=== PATIENT | female | born 1950 | race Caucasian/White ===

== ENCOUNTER → 2018-11-18 | Outpatient (CLI) | payer MEDICARE, OTHER | END | disposition home or self-care (01) | LOC: CFH 12:41 | PROVIDERS: ATTEND Internal Medicine | DX: Z13.820 Encounter for screening for osteoporosis (principal); N95.9 Unspecified menopausal and perimenopausal disorder | CPT/HCPCS: 77080 ==

== ENCOUNTER → 2019-04-20 | Outpatient (CLI) | payer MEDICARE, OTHER ==
[~2019-04-20] MED LIST: BUTA-177 PO; CYAN1TAB20 PO; EZET10TA18 PO; FEXO180T15 PO; HYDROCHLOROTH12.5 MG PO; LOSA25TA25 PO; OMEP-110 PO; ROSU40TA PO
[2019-04-20 13:52] LABS: BASOPHILS # (AUTO) 0.03 x10^3/uL (0-0.1); BASOPHILS % (AUTO) 1 % (0-1); EOSINOPHILS # (AUTO) 0.07 x10^3/uL (0-0.4); EOSINOPHILS % (AUTO) 2 % (1-7); LYMPHOCYTES # (AUTO) 0.93 x10^3/uL (1-3.4); LYMPHOCYTES % (AUTO) 21 % (22-44); MD NO; MEAN CORPUSCULAR HEMOGLOBIN 30.8 pg (27.0-34.8); MEAN CORPUSCULAR HGB CONC 33.2 g/dL (32.4-35.8); MEAN CORPUSCULAR VOLUME 92.9 fL (80-100); MEAN PLATELET VOLUME 8.3 fL (7.4-10.4); MONOCYTES # (AUTO) 0.34 x10^3/uL (0.2-0.8); MONOCYTES % (AUTO) 8 % (2-9); NEUTROPHILS # (AUTO) 2.97 x10^3/uL (1.8-6.8); NEUTROPHILS % (AUTO) 69 % (42-75); PLATELET COUNT 214 x10^3/uL (130-400); RED BLOOD COUNT 4.36 x10^6/uL (3.82-5.3); RED CELL DISTRIBUTION WIDTH 13.3 % (9.6-15.2)
[2019-04-20 13:54] LABS: INTERNATIONAL NORMALIZED RATIO 0.95 (0.93-1.1)
[2019-04-20 13:55] LABS: ANION GAP 5 mmol/L (5-15); CALCIUM 9.4 mg/dL (8.5-10.1); CHLORIDE 106 mmol/L (98-107); CREATININE 1.03 mg/dL (0.55-1.02)
[2019-04-20 13:56] LABS: ALANINE AMINOTRANSFERASE 36 U/L (12-78); ALBUMIN 4.2 g/dL (3.4-5.0)
[2019-04-20 13:57] LABS: ALKALINE PHOSPHATASE 116 U/L (45-117); BILIRUBIN,TOTAL 0.4 mg/dL (0.2-1.0); TOTAL PROTEIN 7.1 g/dL (6.4-8.2)
[2019-04-20 14:08] LABS: HEMOGLOBIN A1C 5.8 % (4.2-6.3)
== END | disposition home or self-care (01) ==
LOC: STAR 12:23
PROVIDERS: ATTEND Orthopaedic Surgery
DX: Z01.818 Encounter for other preprocedural examination (principal); Z96.651 Presence of right artificial knee joint
CPT/HCPCS: 36415; 80053; 83036; 85025; 85610; 85730; 87081; 93005

== ENCOUNTER 2019-05-07 06:22 | Observation (INO) | payer MEDICARE, OTHER ==
[2019-04-20 13:03] VITALS: BP 122/83
[~2019-05-07] VITALS: Ht 157.5 cm; Wt 71.8 kg
[2019-05-07] MEDS: NS + 20MEQ KCL 1,000 ML IV SCH ×2 (06:22→13:35)
[2019-05-07] MEDS ORDERED: BISACODYL 10 MG SUPP PR PRN (06:30)
[2019-05-07] MEDS ORDERED: HYDROcodone/APAP 5/325 TABLET PO PRN (06:30)
[2019-05-07] MEDS ORDERED: ACETAMINOPHEN 650 MG/20.3 ML UDC PO PRN (06:30)
[2019-05-07] MEDS ORDERED: SCOPOLAMINE PATCH, 1.5MG PATCH.TD72 TD ONE (06:30)
[2019-05-07] MEDS ORDERED: DIPHENHYDRAMINE 50 MG CAPSULE PO PRN (06:30)
[2019-05-07] MEDS ORDERED: MAGNESIUM HYDROXIDE 8%, 30ML UDC PO PRN (06:30)
[2019-05-07] MEDS ORDERED: ZOLPIDEM 5MG TABLET PO PRN (06:30)
[2019-05-07] MEDS ORDERED: SENNA/DOCUSATE TABLET PO PRN (06:30)
[2019-05-07] MEDS ORDERED: ONDANSETRON 4 MG TABLET PO PRN (06:30)
[2019-05-07] MEDS ORDERED: HYDROmorphone 1 MG/ML, 1ML INJ IV PRN (06:30)
[2019-05-07] MEDS ORDERED: LACTATED RINGERS 1,000 ML IV SCH (06:54)
[2019-05-07] MEDS ORDERED: ACETAMINOPHEN 500 MG TABLET PO ONE (07:00)
[2019-05-07] MEDS ORDERED: GABAPENTIN 300 MG CAPSULE PO ONE (07:00)
[2019-05-07] MEDS ORDERED: ROPIvacaine/PF 0.5%, 20 ML ONE (07:21)
[2019-05-07] MEDS ORDERED: KETOROLAC 60 MG/2 ML ONE (07:21)
[2019-05-07] MEDS ORDERED: TRANEXAMIC ACID 100 MG/ML, 10ML ONE ×2 (07:21)
[2019-05-07] MEDS ORDERED: VANCOMYCIN 1,000 MG ONE (07:22)
[2019-05-07] MEDS ORDERED: SODIUM CHLORIDE 0.9% 50 ML ONE (07:22)
[2019-05-07] MEDS ORDERED: EPINEPHRINE 1 MG/ML, 1ML ONE ×2 (07:22→07:25)
[2019-05-07] MEDS ORDERED: ROPIvacaine/PF 0.5%, 30 ML ONE (07:25)
[2019-05-07] MEDS ORDERED: LIDOCAINE-MPF 2% ,5ML ONE (07:27)
[2019-05-07] MEDS ORDERED: FENTANYL PF 100 MCG/2ML ONE (07:47)
[2019-05-07] MEDS ORDERED: CEFAZOLIN 1,000 MG ONE (07:47)
[2019-05-07] MEDS ORDERED: ONDANSETRON 2MG/ML, 2ML ONE (07:47)
[2019-05-07] MEDS ORDERED: MIDAZOLAM 1 MG/ML, 2ML ONE (07:47)
[2019-05-07] MEDS ORDERED: DEXAMETHASONE 4 MG/ML, 5ML ONE (07:47)
[2019-05-07] MEDS ORDERED: SUCCINYLCHOLINE 20 MG/ML, 10ML ONE (07:47)
[2019-05-07] MEDS ORDERED: PROPOFOL 10 MG/ML, 20ML ONE (07:47)
[2019-05-07] MEDS ORDERED: METOCLOPRAMIDE 5 MG/ML, 2ML IV PRN (08:30)
[2019-05-07] MEDS ORDERED: LABETALOL 5MG/ML, 20ML IV PRN (08:30)
[2019-05-07] MEDS ORDERED: FENTANYL PF 100 MCG/2ML IV PRN (08:30)
[2019-05-07] MEDS ORDERED: LORazepam 2 MG/ML, 1ML IVPush PRN (08:30)
[2019-05-07] MEDS ORDERED: ALBUTEROL/IPRATROPIUM 2.5MG/0.5MG, 3 ML NPPB PRN (08:30)
[2019-05-07] MEDS ORDERED: MEPERIDINE/PF 25MG/0.5ML IVPush PRN (08:30)
[2019-05-07] MEDS ORDERED: hydrALAzine 20 MG/ML, 1ML IV PRN (08:30)
[2019-05-07] MEDS ORDERED: ONDANSETRON 2MG/ML, 2ML IV PRN (08:30)
[2019-05-07] MEDS ORDERED: OXYcodone 5 MG/5 ML ORAL.SOL UDC PO PRN (08:30)
[2019-05-07] MEDS ORDERED: METOPROLOL 1 MG/ML, 5ML IV PRN (08:30)
[2019-05-07] MEDS: OMEPRAZOLE 20 MG CAPSULE.DR PO SCH (09:00)
[2019-05-07] MEDS: DOCUSATE 100 MG CAPSULE PO SCH ×2 (09:00→21:26)
[2019-05-07] MEDS: LOSARTAN 25MG TABLET PO SCH (09:00)
[2019-05-07] MEDS: HYDROCHLOROTHIAZIDE 12.5 MG CAPSULE PO SCH (09:00)
[2019-05-07] MEDS ORDERED: HYDROmorphone 2 MG/ML, 1ML ONE (09:25)
[2019-05-07] MEDS ORDERED: MEPERIDINE/PF 25MG/ML,1ML ONE (09:25)
[2019-05-07] MEDS: HYDROmorphone 2 MG/ML, 1ML IVPush PRN ×4 (09:36→10:08)
[2019-05-07] MEDS ORDERED: OXYcodone 5 MG/5 ML ORAL.SOL UDC ONE (09:46)
[2019-05-07 12:22] VITALS: BP 126/66
[2019-05-07] MEDS ORDERED: CEFAZOLIN PMX 2GM/50ML 50 ML IVPB SCH (14:30)
[2019-05-07] MEDS: ONDANSETRON 2MG/ML, 2ML IV PRN (15:06)
[2019-05-07] MEDS: OXYcodone IR 5MG TABLET PO PRN ×2 (15:43→21:26)
[2019-05-07] MEDS: CEFAZOLIN PMX 2GM/100ML 100 ML IVPB SCH (15:43)
[2019-05-07] MEDS: ASPIRIN 81 MG TABLET EC PO SCH (17:01)
[2019-05-07 18:34] VITALS: BP 140/74
[2019-05-07] MEDS ORDERED: EZETIMIBE 10 MG TABLET PO SCH (21:00)
[2019-05-08] MEDS: CEFAZOLIN PMX 2GM/100ML 100 ML IVPB SCH (00:59)
[2019-05-08] MEDS: OXYcodone IR 5MG TABLET PO PRN ×3 (02:27→10:14)
[2019-05-08 02:33] VITALS: BP 128/74
[2019-05-08] MEDS: ONDANSETRON 2MG/ML, 2ML IV PRN (05:37)
[2019-05-08] MEDS: ASPIRIN 81 MG TABLET EC PO SCH (05:38)
[2019-05-08] MEDS ORDERED: DEXAMETHASONE 4 MG/ML, 1ML IVPush SCH (06:00)
[2019-05-08] MEDS: OMEPRAZOLE 20 MG CAPSULE.DR PO SCH (07:53)
[2019-05-08] MEDS: LOSARTAN 25MG TABLET PO SCH (07:54)
[2019-05-08] MEDS: DOCUSATE 100 MG CAPSULE PO SCH (07:54)
[2019-05-08] MEDS: HYDROCHLOROTHIAZIDE 12.5 MG CAPSULE PO SCH (07:54)
[2019-05-08 07:57] VITALS: BP 116/69
[2019-05-08 11:11] VITALS: BP 114/61
[2019-05-08] MEDS ORDERED: OXYC5TAB3 PO (12:31)
[2019-05-08] MEDS ORDERED: MELO7.5T31 PO (12:32)
[2019-05-08] MEDS ORDERED: TRAM50TA2 PO (12:36)
== END 2019-05-08 13:03 | disposition home or self-care (01) ==
LOC: OUT 06:22 → 4NOR 10:31 → OUT 16:55 → 4NOR 16:55 → DCLOUNGE 05-08 12:48
PROVIDERS: ADMIT Orthopaedic Surgery; ATTEND Orthopaedic Surgery
DX: M17.11 Unilateral primary osteoarthritis, right knee (principal); I25.10 Atherosclerotic heart disease of native coronary artery without angina pectoris; M54.9 Dorsalgia, unspecified; G89.29 Other chronic pain; Z95.5 Presence of coronary angioplasty implant and graft; Z90.89 Acquired absence of other organs
CPT/HCPCS: 27447; 36415; 73560; 85014; 85018; 96365; 96366; 96375; 96376; 97110; 97116; 97162; C1713; C1776; G0378; J0171; J0330; J0690; J1100; J1170; J1885; J2175; J2250; J2405; J2704; J2795; J3010; J3370; J3480; J3490; J7120